=== PATIENT | male | born 1955 | race Caucasian/White ===

== ENCOUNTER 2018-01-21 18:10 | Inpatient (IN) | payer OTHER, SELFPAY ==
[~2018-01-21 18:10] MED LIST: Iopamidol 370 76% 100 ML VIAL ONE
[2018-01-21 18:40] LABS: #Basophils 0.2 thou/uL (0.0-0.2); #Eosinphils 0.7 thou/uL (0.0-0.7); #Lymphocytes 3.8 thou/uL (1.20-3.40); #Monocytes 1.2 thou/uL (0.11-0.59); #Neutrophils 5.4 thou/uL (1.40-6.50); %Basophils 1.6 % (0.0-1.0); %Eosinophils 6.2 % (0.0-10.0); %Monocytes 10.4 % (0.0-10.0); %Neutrophils 47.9 % (42.0-75.0); Hemoglobin 15.3 g/dL (14.0-18.0); Mean Corpuscular HGB CONC 32.9 g/dL (32.0-36.0); Mean Corpuscular Hemoglobin 31.7 pg (27.0-31.0); Mean Corpuscular Volume 96.3 fL (78.0-98.0); Platelet Count 244 thou/uL (130-400); RBC Distribution Width 13.3 % (11.5-14.5); Red Blood Cell (RBC) Count 4.82 mill/uL (4.70-6.10); White Blood Cell (WBC) Count 11.2 thou/uL (4.8-10.8)
[2018-01-21 18:53] LABS: ALT (SGPT) 11 U/L (8-55); AST (SGOT) 13 U/L (5-34); Albumin 3.9 g/dL (3.4-4.8); Alcohol Less than 10 mg/dL (Less than 10); Alkaline Phosphatase 81 U/L (40-150); Anion Gap 12 mmol/L (10-20); BUN (Urea Nitrogen) 16 mg/dL (8.4-25.7); Bilirubin, Total 0.4 mg/dL (0.2-1.2); Calc. Creatinine Clearance 0 mL/min (70-130); Calcium 9.7 mg/dL (7.8-10.44); Carbon Dioxide 21 mmol/L (23-31); Chloride 111 mmol/L (98-107); Estimated GFR-MDRD 57; Globulin 3.7 g/dL (2.4-3.5); Glucose 111 mg/dL (80-115); Potassium 3.9 mmol/L (3.5-5.1); Protein, Total 7.6 g/dL (5.8-8.1); Sodium 140 mmol/L (136-145)
[2018-01-21] MEDS ORDERED: Adacel (T-DAP) 0.5 ML SYRINGE ONE (19:12)
[2018-01-21] MEDS ORDERED: Lidocaine 1% w/Epinephrine 1:100K 20 ML VIAL ONE (19:16)
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
[2018-01-21] MEDS ORDERED: Dextrose 50% Abboject 50 ML SYRINGE SLOW IVP PRN (22:25)
[2018-01-21] MEDS ORDERED: Dextrose 5% in Water 1,000 ML IV PRN (22:25)
[2018-01-21] MEDS ORDERED: Ondansetron PF 4 MG/2 ML Vial IVP PRN (22:25)
[2018-01-21] MEDS ORDERED: Ondansetron ODT 4 MG TAB PO PRN (22:25)
[2018-01-21] MEDS ORDERED: Ibuprofen 600 MG TAB PO PRN (22:31)
[2018-01-21] MEDS ORDERED: Acetaminophen 500 MG TAB PO PRN (22:31)
[2018-01-21 23:02] LABS: Medtox Control Line Valid? VALID (VALID); Medtox Reader # READER 1
[2018-01-21 23:03] LABS: Amphetamine Not Detected (NotDetected); Barbiturates Screen Not Detected (NotDetected); Benzodiazepine Screen Not Detected (NotDetected); Cocaine Metabolite Screen Not Detected (NotDetected); Methadone Not Detected (NotDetected); Methamphetamine Not Detected (NotDetected); Opiate Screen Not Detected (NotDetected); Oxycodone Screen Not Detected (NotDetected); Phencyclidine (PCP) Not Detected (NotDetected); THC/Cannabinoid Screen Not Detected (NotDetected); Tricyclic Screen Not Detected (NotDetected)
[2018-01-21 23:40] LABS: Bilirubin Negative (Negative); Blood, Urine Large (Negative); Clarity CLOUDY (Clear); Glucose, Urine (Dipstick) Negative (Negative); Leukocyte Small (Negative); Nitrite Negative (Negative); Protein, Urine (Dipstick) Trace mg/dL (Neg-Trace); Specific Gravity, Urine 1.011 (1.002-1.036); Urobilinogen 0.2 mg/dL (0.2-1.0); pH, Urine 6.5 (5.0-9.0)
[2018-01-21 23:43] LABS: Bacteria/HPF None Seen HPF (None Seen); Hyaline Casts/LPF 0-3 HYALINE CAST LPF (0-3 Hyaline); Pathc Cast-AUWi Flag 0.29 (0-2.49); RBC/HPF GREATER THAN 50-TNTC HPF (0-3); Squamous Epithelial 0-3 HPF (0-3)
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
[2018-01-22 01:46] VITALS: BMI 30.7
[2018-01-22 02:27] LABS: #Basophils 0.1 thou/uL (0.0-0.2); #Eosinphils 0.1 thou/uL (0.0-0.7); #Lymphocytes 2.2 thou/uL (1.20-3.40); #Monocytes 1.5 thou/uL (0.11-0.59); #Neutrophils 10.8 thou/uL (1.40-6.50); %Basophils 0.6 % (0.0-1.0); %Eosinophils 0.7 % (0.0-10.0); %Lymphocytes 15.1 % (21.0-51.0); %Monocytes 10.4 % (0.0-10.0); %Neutrophils 73.1 % (42.0-75.0); Hemoglobin 14.3 g/dL (14.0-18.0); Mean Corpuscular HGB CONC 33.6 g/dL (32.0-36.0); Mean Corpuscular Hemoglobin 31.9 pg (27.0-31.0); Mean Corpuscular Volume 94.7 fL (78.0-98.0); Mean Platelet Volume 7.7 fL (7.4-10.4); Platelet Count 219 thou/uL (130-400); RBC Distribution Width 13.1 % (11.5-14.5); Red Blood Cell (RBC) Count 4.47 mill/uL (4.70-6.10); White Blood Cell (WBC) Count 14.8 thou/uL (4.8-10.8)
[2018-01-22 02:43] LABS: Anion Gap 11 mmol/L (10-20); BUN (Urea Nitrogen) 13 mg/dL (8.4-25.7); Calc. Creatinine Clearance 93 mL/min (70-130); Calcium 9.1 mg/dL (7.8-10.44); Carbon Dioxide 21 mmol/L (23-31); Chloride 111 mmol/L (98-107); Estimated GFR-MDRD 74; Glucose 107 mg/dL (80-115); Magnesium 1.6 mg/dL (1.6-2.6); Phosphorus 2.1 mg/dL (2.3-4.7); Potassium 3.8 mmol/L (3.5-5.1); Sodium 139 mmol/L (136-145)
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
[2018-01-22] MEDS: Polyethylene Glycol 3350 17 GM Packet PO SCH (09:04)
[2018-01-22] MEDS: Senokot S 8.6-50 MG TAB PO SCH ×2 (09:04→21:15)
[2018-01-22] MEDS: Famotidine 20 MG TAB PO SCH ×2 (09:05→21:15)
[2018-01-22] MEDS ORDERED: Heparin 10,000 UNITS/ 10 ML VIAL SLOW IVP SCH (09:45)
[2018-01-22] MEDS ORDERED: Heparin 25,000 units/D5W 500 ML IVPB SCH (09:45)
[2018-01-22] MEDS ORDERED: hydrALAZINE 20 MG/ML VIAL SLOW IVP PRN (10:11)
[2018-01-22] MEDS ORDERED: cloNIDine 0.1 MG TAB PO PRN (10:11)
[2018-01-22] MEDS ORDERED: Diabetic Tussin 200 MG/10 ML UDCUP PO PRN (10:11)
[2018-01-22] MEDS ORDERED: Benzonatate 100 MG CAP PO PRN (10:11)
[2018-01-22 10:34] LABS: Hemoglobin 14.5 g/dL (14.0-18.0); Platelet Count 236 thou/uL (130-400)
[2018-01-22] MEDS ORDERED: Magnesium 2 GM/50 ML 2 GM in Premix Bag 1 BAG IVPB SCH (12:45)
[2018-01-22] MEDS ORDERED: Potassium Phosphate 15 MMOL in Sodium Chloride 0.9% 250 ML 250 ML IVPB SCH (13:00)
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
[2018-01-22 17:41] LABS: PTT 227.9 SEC (22.9-36.1)
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
[2018-01-22] MEDS ORDERED: Lisinopril 5 MG TAB PO SCH (21:00)
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
[2018-01-23 06:06] LABS: Anion Gap 11 mmol/L (10-20); BUN (Urea Nitrogen) 13 mg/dL (8.4-25.7); Calc. Creatinine Clearance 97 mL/min (70-130); Calcium 9.2 mg/dL (7.8-10.44); Carbon Dioxide 21 mmol/L (23-31); Chloride 108 mmol/L (98-107); Estimated GFR-MDRD 77; Glucose 88 mg/dL (80-115); Potassium 3.8 mmol/L (3.5-5.1); Sodium 136 mmol/L (136-145)
[2018-01-23 07:01] LABS: PTT 124.3 SEC (22.9-36.1)
[2018-01-23] MEDS: Lisinopril 5 MG TAB PO SCH ×2 (08:20→22:16)
[2018-01-23] MEDS: Famotidine 20 MG TAB PO SCH ×2 (08:20→22:17)
[2018-01-23] MEDS: Polyethylene Glycol 3350 17 GM Packet PO SCH (08:21)
[2018-01-23] MEDS: Senokot S 8.6-50 MG TAB PO SCH ×2 (08:21→22:20)
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
--- NOTE | 2018-01-23 12:24 | EKG ---
Test Reason : Blood Pressure : / mmHG Vent. Rate : 116 BPM Atrial Rate : 116 BPM P-R Int : 126 ms QRS Dur : 096 ms QT Int : 362 ms P-R-T Axes : 044 -48 016 degrees QTc Int : 503 ms Sinus tachycardia with Premature atrial complexes Left anterior fascicular block Inferior infarct , age undetermined Abnormal ECG Confirmed by KETAN CHRISTIAN DO ([id number]), food expeditor GIOVANY ANDREW ([id number]) on 01/23/2018 12:24:00 PM Referred By: Confirmed By:KETAN CHRISTIAN DO
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
[2018-01-24 06:52] LABS: Anion Gap 10 mmol/L (10-20); BUN (Urea Nitrogen) 15 mg/dL (8.4-25.7); Calc. Creatinine Clearance 88 mL/min (70-130); Calcium 9.4 mg/dL (7.8-10.44); Carbon Dioxide 23 mmol/L (23-31); Chloride 108 mmol/L (98-107); Estimated GFR-MDRD 69; Glucose 84 mg/dL (80-115); Sodium 137 mmol/L (136-145)
[2018-01-24] MEDS: Lisinopril 5 MG TAB PO SCH ×2 (09:09→20:26)
[2018-01-24] MEDS: Senokot S 8.6-50 MG TAB PO SCH ×2 (09:09→20:29)
[2018-01-24] MEDS: Famotidine 20 MG TAB PO SCH ×2 (09:09→20:25)
[2018-01-24] MEDS: Polyethylene Glycol 3350 17 GM Packet PO SCH (09:09)
[2018-01-24 10:38] LABS: Hemoglobin 15.1 g/dL (14.0-18.0); Platelet Count 232 thou/uL (130-400)
[2018-01-24 10:46] LABS: INR-International Normal Ratio 1.1; PTT 27.2 SEC (22.9-36.1); Prothrombin Time 13.8 SEC (12.0-14.7)
--- NOTE | 2018-01-24 11:08 | PDOC.PN ---
- Subjective Encounter Start Date: 01/24/18 Encounter Start Time: 11:06 Subjective: feels well. eating and walking in hallways -: no CP/SOB - Objective Resuscitation Status - Order Detail: 01/21/18 22:25 Resuscitation Status Routine Co-Sign Provider: Resuscitation Status: FULL: Full Resuscitation Discussed with: pt gcs 14, no family at bedside MAR Reviewed: Yes Vital Signs & Weight: Vital Signs (12 hours) Temp Pulse Resp BP Pulse Ox 01/24/18 07:27 97.7 F 75 20 138/89 96 01/24/18 04:00 98.3 F 77 16 145/77 H 98 01/24/18 00:00 98.7 F 75 16 115/71 96 Weight Admit Weight 196 lb 8 oz Weight 196 lb 8 oz I&O: 01/23/18 01/24/18 01/25/18 06:59 06:59 06:59 Intake Total 720 480 Output Total 1075 900 Balance -355 -420 Result Diagrams: 01/24/18 10:21 01/24/18 05:07 Phys Exam - Physical Examination Constitutional: NAD HEENT: PERRLA, moist MMs, sclera anicteric, oral pharynx no lesions R facial brusing and swelling Neck: no nodes, no JVD, supple, full ROM Respiratory: no wheezing, no rales, no rhonchi, clear to auscultation bilateral Cardiovascular: RRR, no significant murmur Gastrointestinal: soft, non-tender, no distention, positive bowel sounds Musculoskeletal: no edema, pulses present left leg induration & erythema is better Neurological: non-focal, normal sensation, moves all 4 limbs Psychiatric: normal affect, A&O x 3 Skin: no rash Dx/Plan (1) Leg DVT (deep venous thromboembolism), acute Code(s): I82.409 - ACUTE EMBOLISM AND THOMBOS UNSP DEEP VN UNSP LOWER EXTREMITY Status: Acute Qualifiers: Laterality: left Qualified Code(s): I82.402 - Acute embolism and thrombosis of unspecified deep veins of left lower extremity (2) Hematuria Code(s): R31.9 - HEMATURIA, UNSPECIFIED Status: Acute (3) Prolonged QT interval Code(s): R94.31 - ABNORMAL ELECTROCARDIOGRAM [ECG] [EKG] Status: Acute (4) Sinus tachycardia Code(s): R00.0 - TACHYCARDIA, UNSPECIFIED Status: Resolved (5) HLD (hyperlipidemia) Code(s): E78.5 - HYPERLIPIDEMIA, UNSPECIFIED Status: Chronic (6) HTN (hypertension) Code(s): I10 - ESSENTIAL (PRIMARY) HYPERTENSION Status: Chronic (7) Nephrolithiasis Status: Chronic - Plan PT/OT, DVT proph w/SCDs recommened continuation & 3 month Rx with Oral anticoagulation pref Eliquis -: Will defer to primary team & urology.heparin drip stopped -: Pt was on ASA at home.high risk for PE given current DVT & immobilzation -: BP controlled.cont lisinopril -: O/PT.AM labs.H/H stable.IM team will follow * . Review of Systems - Review of Systems Constitutional: weakness. negative: fever, chills, sweats, malaise, other ENT: negative: Ear Pain, Ear Discharge, Nose Pain, Nose Discharge, Nose Congestion, Mouth Pain, Mouth Swelling, Throat Pain, Throat Swelling, Other Respiratory: negative: Cough, Dry, Shortness of Breath, Hemoptysis, SOB with Excertion, Pleuritic Pain, Sputum, Wheezing Cardiovascular: negative: chest pain, palpitations, orthopnea, paroxysmal nocturnal dyspnea, edema, light headedness, other Gastrointestinal: negative: Nausea, Vomiting, Abdominal Pain, Diarrhea, Constipation, Melena, Hematochezia, Other Genitourinary: negative: Dysuria, Frequency, Incontinence, Hematuria, Retention , Other Musculoskeletal: Other (knee pain in bruised knee). negative: Neck Pain, Shoulder Pain, Arm Pain, Back Pain, Hand Pain, Leg Pain, Foot Pain Neurological: negative: Weakness, Numbness, Incoordination, Change in Speech, Confusion, Seizures, Other - Medications/Allergies Allergies/Adverse Reactions: Allergies Allergy/AdvReac Type Severity Reaction Status Date / Time dextromethorphan HBr Allergy Verified 02/20/13 18:52 [From NyQuil] doxylamine [From NyQuil] Allergy Verified 02/20/13 18:52 pseudoephedrine HCl Allergy Verified 02/20/13 18:52 [From NyQuil] Sulfa (Sulfonamide Allergy Verified 02/20/13 17:32 Antibiotics) Medications: Current Medications Acetaminophen (Tylenol) 1,000 mg PO Q6H PRN PRN Reason: PAIN - 1st line Aspirin (Aspirin Chewable) 81 mg PO BID [facility] Last Admin: 01/24/18 09:09 Dose: 81 mg Benzonatate (Tessalon) 100 mg PO Q6H PRN PRN Reason: Cough Clonidine (Catapres) 0.1 mg PO Q4H PRN PRN Reason: SBP > _160___ Dextrose/Water (Dextrose 50%) 25 gm SLOW IVP PRN PRN PRN Reason: Hypoglycemia Famotidine (Pepcid) 20 mg PO BID [facility] Last Admin: 01/24/18 09:09 Dose: 20 mg Glucagon (Glucagon) 1 mg IM PRN PRN PRN Reason: Hypoglycemia Guaifenesin (Robitussin Sf) 200 mg PO Q4H PRN PRN Reason: Cough Hydralazine HCl (Apresoline) 10 mg SLOW IVP Q4H PRN PRN Reason: SBP > 180 and HR < 70 Dextrose/Water (D5w) 1,000 mls @ 0 mls/hr IV .Q0M PRN PRN Reason: Hypoglycemia Ibuprofen (Motrin) 600 mg PO Q8H PRN PRN Reason: pain 2nd line Lisinopril (Zestril) 2.5 mg PO BID [facility] Last Admin: 01/24/18 09:09 Dose: 2.5 mg Ondansetron HCl (Zofran Odt) 4 mg PO Q6H PRN PRN Reason: Nausea/Vomiting Ondansetron HCl (Zofran) 4 mg IVP Q6H PRN PRN Reason: Nausea Polyethylene Glycol (Miralax) 17 gm PO DAILY [facility] Last Admin: 01/24/18 09:09 Dose: Not Given Senna/Docusate Sodium (Senokot S) 2 tab PO BID [facility] Last Admin: 01/24/18 09:09 Dose: Not Given Sodium Chloride (Flush - Normal Saline) 10 ml IVF PRN PRN PRN Reason: Saline Flush
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
[2018-01-24] MEDS: Apixaban 5 MG TAB PO SCH (20:25)
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
[2018-01-25] MEDS: Polyethylene Glycol 3350 17 GM Packet PO SCH (09:10)
[2018-01-25] MEDS: Lisinopril 5 MG TAB PO SCH (09:11)
[2018-01-25] MEDS: Famotidine 20 MG TAB PO SCH (09:12)
[2018-01-25] MEDS: Apixaban 5 MG TAB PO SCH (09:12)
[2018-01-25] MEDS: Senokot S 8.6-50 MG TAB PO SCH (09:12)
[2018-01-25 11:47] VITALS: BP 123/73; TEMP 97.4
[2018-01-25] MEDS ORDERED: Apixaban 5 MG TAB PO SCH ×2 (13:15→21:00)
--- NOTE | 2018-01-25 15:24 | NM ---
NUCLEAR MEDICINE TECHNETIUM 99M STANDARD: HISTORY: Evaluate for renal function. COMPARISON: None. TECHNIQUE: Examination of the kidneys was performed after the intravenous administration of Technetium 99m MAG3 intravenously. The split function is 70.3% on the left kidney and 29.7% on the right kidney. No Lasix was administe red intravenously. On the postvoid images, there is dilatation of the right renal collecting system. IMPRESSION: Split function 70.3% on the left and 29.7% right. POS: ERVIN
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
== END 2018-01-25 13:45 | disposition home or self-care (01) | DRG 89 ==
LOC: ERS 18:10 → 2SE 22:25 → SURG A 01-23 11:55
PROVIDERS: ADMIT Surgery; ATTEND Surgery
PROC: 0HQ1XZZ Repair Face Skin, External Approach (ICD-10-PCS; principal; 2018-01-21)
DX: S06.0X9A Concussion with loss of consciousness of unspecified duration, initial encounter (principal); I82.432 Acute embolism and thrombosis of left popliteal vein; I31.3 Pericardial effusion (noninflammatory); T83.85XA Stenosis due to genitourinary prosthetic devices, implants and grafts, initial encounter; V03.90XA Pedestrian on foot injured in collision with car, pick-up truck or van, unspecified whether traffic or nontraffic accident, initial encounter; Y92.410 Unspecified street and highway as the place of occurrence of the external cause; I10 Essential (primary) hypertension; R73.03 Prediabetes; R00.0 Tachycardia, unspecified; I45.81 Long QT syndrome; S01.411A Laceration without foreign body of right cheek and temporomandibular area, initial encounter; R31.9 Hematuria, unspecified; E78.5 Hyperlipidemia, unspecified; N20.0 Calculus of kidney; I44.4 Left anterior fascicular block; N21.0 Calculus in bladder; Z88.2 Allergy status to sulfonamides; Z88.8 Allergy status to other drugs, medicaments and biological substances
CPT/HCPCS: 12013; 36415; 70450; 70486; 71045; 71260; 72125; 74177; 78707; 80048; 80053; 80306; 80307; 81003; 81015; 83735; 84100; 84484; 85014; 85018; 85025; 85049; 85610; 85730; 87086; 90471; 90715; 93005; 93306; 96360; A9562; G0390; G8978-GP-CJ; G8979-GP-CJ; G8980-GP-CJ; G8987-GO-CH; G8988-GO-CH; G8989-GO-CH; J1644; J2001; J7050

== ENCOUNTER 2018-11-18 17:06 | Emergency (ER) | payer SELFPAY ==
--- NOTE | 2018-11-18 18:16 | ULT ---
ULTRASOUND DOPPLER DUPLEX VENOUS LEFT LOWER EXTREMITY: DATE: 11/18/2018 HISTORY: 63-year-old male with left lower extremity edema TECHNIQUE: Grayscale, color-flow, and spectral analysis, of the left common femoral, profunda femoral, greater s aphenous, femoral, popliteal, and posterior tibial, veins. FINDINGS: There is edema in the soft tissues of the calf. Because of the edema, the posterior tibial vein is no t visualized. There is no DVT in the popliteal, femoral, common femoral, profunda femoral, or proximal greater saph enous, veins. Enlarged lymph node in left groin is noted. IMPRESSION: 1. Soft tissue edema in the left leg. 2. Posterior tibial vein not visualized. 3. No evidence of deep venous thrombosis in the left thigh from groin to knee.
== END 2018-11-18 19:20 | disposition home or self-care (01) ==
LOC: ERS 17:06
DX: I89.0 Lymphedema, not elsewhere classified (principal); E78.5 Hyperlipidemia, unspecified; I10 Essential (primary) hypertension; Z87.891 Personal history of nicotine dependence; Z79.82 Long term (current) use of aspirin; Z79.899 Other long term (current) drug therapy

== ENCOUNTER 2019-03-16 11:05 | Emergency (ER) | payer SELFPAY ==
--- NOTE | 2019-03-16 12:34 | RAD ---
EXAM: Chest 2 views: HISTORY: Cough for 2 weeks COMPARISON: None. FINDINGS: There is a normal-sized cardiomediastinal silhouette. There is no evidence of consolidation, mass, or pleural effusion. Degenerative changes are seen in the spine. IMPRESSION: No evidence of acute cardiopulmonary disease
[2019-03-16] MEDS ORDERED: Dexamethasone 10 MG/ML VIAL ONE (12:53)
[2019-03-16] MEDS ORDERED: Benzonatate 100 MG CAP ONE (12:53)
== END 2019-03-16 12:56 | disposition home or self-care (01) ==
LOC: ERS 11:05
DX: J06.9 Acute upper respiratory infection, unspecified (principal); E78.5 Hyperlipidemia, unspecified; I10 Essential (primary) hypertension; Z87.891 Personal history of nicotine dependence; Z79.899 Other long term (current) drug therapy; Z79.82 Long term (current) use of aspirin
CPT/HCPCS: 71046; J1100

== ENCOUNTER 2019-12-12 11:03 | Emergency (ER) | payer OTHER, SELFPAY ==
[2019-12-12 11:46] LABS: #Basophils 0.1 thou/uL (0.0-0.2); #Eosinphils 0.3 thou/uL (0.0-0.7); #Lymphocytes 1.9 thou/uL (1.20-3.40); #Monocytes 0.9 thou/uL (0.11-0.59); #Neutrophils 6.6 thou/uL (1.40-6.50); %Basophils 0.6 % (0.0-1.0); %Eosinophils 3.1 % (0.0-10.0); %Lymphocytes 19.8 % (21.0-51.0); %Monocytes 8.8 % (0.0-10.0); %Neutrophils 67.8 % (42.0-75.0); Hemoglobin 15.7 g/dL (14.0-18.0); Mean Corpuscular HGB CONC 32.6 g/dL (32.0-36.0); Mean Corpuscular Hemoglobin 32.2 pg (27.0-31.0); Mean Corpuscular Volume 99.1 fL (78.0-98.0); Mean Platelet Volume 8.8 fL (7.4-10.4); Platelet Count 192 thou/uL (130-400); RBC Distribution Width 12.5 % (11.5-14.5); Red Blood Cell (RBC) Count 4.85 mill/uL (4.70-6.10); White Blood Cell (WBC) Count 9.7 thou/uL (4.8-10.8)
[2019-12-12 12:56] LABS: Albumin 3.8 g/dL (3.4-4.8)
[2019-12-12 12:57] LABS: Chloride 110 mmol/L (98-107); Potassium 4.3 mmol/L (3.5-5.1); Sodium 140 mmol/L (136-145)
[2019-12-12 12:58] LABS: Glucose 87 mg/dL (80-115); Protein, Total 6.8 g/dL (5.8-8.1)
[2019-12-12 13:00] LABS: Anion Gap 13 mmol/L (10-20); Bilirubin, Total 0.6 mg/dL (0.2-1.2); Carbon Dioxide 21 mmol/L (23-31)
[2019-12-12 13:01] LABS: Alkaline Phosphatase 70 U/L (40-110)
[2019-12-12 13:02] LABS: Bilirubin Negative (Negative); Blood, Urine 2+ (Negative); Clarity Clear (Clear); Glucose, Urine (Dipstick) Normal (Negative); Ketone, Urine Negative (Negative); Leukocyte 250 Leu/uL (Negative); Nitrite Negative (Negative); Protein, Urine (Dipstick) 10 mg/dL (Neg-Trace); RBC/HPF Greater than 50 HPF (0-3); Specific Gravity, Urine 1.017 (1.002-1.036); Squamous Epithelial 0-3 HPF (0-3); Urobilinogen Normal mg/dL (Less than 2)
[2019-12-12 13:02] LABS: BUN (Urea Nitrogen) 16 mg/dL (8.4-25.7); Calc. Creatinine Clearance 0 mL/min (70-130); Estimated GFR-MDRD 64
[2019-12-12 13:03] LABS: AST (SGOT) 16 U/L (5-34)
[2019-12-12 13:04] LABS: Bacteria/HPF 1+ HPF (None Seen)
[2019-12-12 13:04] LABS: ALT (SGPT) 11 U/L (8-55)
[2019-12-12] MEDS ORDERED: Ciprofloxacin 500 MG TAB ONE (13:50)
== END 2019-12-12 14:00 | disposition home or self-care (01) ==
LOC: ERS 11:03
DX: N30.00 Acute cystitis without hematuria (principal); E78.5 Hyperlipidemia, unspecified; I11.0 Hypertensive heart disease with heart failure; I50.9 Heart failure, unspecified; Z87.891 Personal history of nicotine dependence
CPT/HCPCS: 36415; 80053; 81003; 81015; 85025; 93005

== ENCOUNTER 2020-11-14 10:47 | Emergency (ER) | payer SELFPAY | END 2020-11-14 13:25 | disposition home or self-care (01) | LOC: ERS 10:47 | DX: I89.0 Lymphedema, not elsewhere classified (principal); E78.5 Hyperlipidemia, unspecified; I11.0 Hypertensive heart disease with heart failure; I50.9 Heart failure, unspecified; Z87.891 Personal history of nicotine dependence | CPT/HCPCS: 99284 ==

== ENCOUNTER 2023-01-28 11:55 | Inpatient (IN) | payer SELFPAY ==
[2023-01-28] MEDS ORDERED: dilTIAZem 125 MG/25 ML SDV ONE (12:26)
[2023-01-28] MEDS ORDERED: dilTIAZem 25 MG/5 ML VIAL ONE (12:28)
[2023-01-28] MEDS ORDERED: Amiodarone 150 MG/3 ML VIAL ONE ×2 (12:39→13:03)
[2023-01-28 12:43] LABS: #Basophils 0.1 thou/uL (0.0-0.2); #Eosinphils 0.5 thou/uL (0.0-0.7); #Monocytes 1.3 thou/uL (0.11-0.59); #Neutrophils 6.4 thou/uL (1.40-6.50); %Basophils 0.5 % (0.0-1.0); %Eosinophils 4.9 % (0.0-10.0); %Monocytes 11.6 % (0.0-10.0); %Neutrophils 57.6 % (42.0-75.0); Hematocrit 45.9 % (42.0-52.0); Mean Corpuscular HGB CONC 32.7 g/dL (32.0-36.0); Mean Corpuscular Hemoglobin 30.6 pg (27.0-31.0); Mean Corpuscular Volume 93.7 fl (78.0-98.0); Mean Platelet Volume 10.8 fL (7.4-10.4); Platelet Count 229 10x3/uL (130-400); RBC Distribution Width 14.5 % (11.5-14.5); White Blood Cell (WBC) Count 11.1 10x3/uL (4.8-10.8)
[2023-01-28] MEDS ORDERED: Amiodarone 450 MG, Admixture Fee 1 EACH in Dextrose 5% in Water 250 ML IVPB SCH (13:00)
[2023-01-28 13:05] LABS: ALT (SGPT) 9 U/L (8-55); AST (SGOT) 12 U/L (5-34); Albumin 3.7 g/dL (3.4-4.8); Alkaline Phosphatase 64 U/L (40-110); Anion Gap 12 mmol/L (10-20); BUN (Urea Nitrogen) 12 mg/dL (8.4-25.7); Bilirubin, Total 0.6 mg/dL (0.2-1.2); Calc. Creatinine Clearance 0 mL/min (70-130); Calcium 9.1 mg/dL (7.8-10.44); Carbon Dioxide 22 mmol/L (23-31); Chloride 109 mmol/L (98-107); Estimated GFR 53; Globulin 3.2 g/dL (2.4-3.5); Glucose 94 mg/dL (80-115); Magnesium 1.7 mg/dL (1.6-2.6); Potassium 3.7 mmol/L (3.5-5.1); Protein, Total 6.9 g/dL (5.8-8.1); Sodium 139 mmol/L (136-145)
[2023-01-28 13:10] LABS: Troponin I 0.017 ng/mL (< 0.028)
[2023-01-28] MEDS ORDERED: Senokot S 8.6-50 MG TAB PO PRN (15:03)
[2023-01-28] MEDS ORDERED: Bisacodyl 10 MG SUPP PR PRN (15:03)
[2023-01-28] MEDS ORDERED: Bisacodyl 5 MG TAB PO PRN (15:03)
[2023-01-28] MEDS ORDERED: Furosemide 40 MG/4 ML VIAL SLOW IVP SCH (15:15)
[2023-01-28] MEDS ORDERED: Furosemide 40 MG/4 ML VIAL ONE (16:29)
[2023-01-28 18:02] LABS: Bilirubin Negative (Negative); Blood, Urine 3+ (Negative); CAUTI Indications for Culture Dysuria,urgency,freq; Clarity Clear (Clear); Glucose, Urine (Dipstick) Normal (Negative); Ketone, Urine Negative (Negative); Leukocyte 75 Leu/uL (Negative); Nitrite Negative (Negative); Protein, Urine (Dipstick) 10 mg/dL (Neg-Trace); RBC/HPF Greater than 50 HPF (0-3); Specific Gravity, Urine 1.007 (1.002-1.036); Squamous Epithelial 0-3 HPF (0-3); Urobilinogen Normal mg/dL (Less than 2); pH, Urine 5.5 (5.0-9.0)
[2023-01-28 18:11] LABS: Bacteria/HPF 1+ HPF (None Seen)
[2023-01-28 18:12] LABS: Urine Culture Reflex No No
[2023-01-28] MEDS: Amiodarone 450 MG in Dextrose 5% in Water 250 ML IVPB SCH (19:40)
[2023-01-28] MEDS: Acetaminophen 500 MG TAB PO SCH (21:23)
[2023-01-29 04:09] LABS: #Basophils 0.1 thou/uL (0.0-0.2); #Eosinphils 0.5 thou/uL (0.0-0.7); #Neutrophils 4.2 thou/uL (1.40-6.50); %Basophils 0.7 % (0.0-1.0); %Lymphocytes 32.3 % (21.0-51.0); %Monocytes 11.8 % (0.0-10.0); %Neutrophils 48.9 % (42.0-75.0); Hematocrit 39.8 % (42.0-52.0); Hemoglobin 13.1 g/dL (14.0-18.0); Mean Corpuscular HGB CONC 32.9 g/dL (32.0-36.0); Mean Corpuscular Hemoglobin 30.8 pg (27.0-31.0); Mean Corpuscular Volume 93.4 fl (78.0-98.0); Platelet Count 215 10x3/uL (130-400); RBC Distribution Width 14.6 % (11.5-14.5); Red Blood Cell (RBC) Count 4.26 mill/uL (4.70-6.10); White Blood Cell (WBC) Count 8.7 10x3/uL (4.8-10.8)
[2023-01-29 04:31] LABS: Anion Gap 12 mmol/L (10-20); BUN (Urea Nitrogen) 13 mg/dL (8.4-25.7); Calc. Creatinine Clearance 68 mL/min (70-130); Calcium 8.6 mg/dL (7.8-10.44); Carbon Dioxide 21 mmol/L (23-31); Chloride 111 mmol/L (98-107); Estimated GFR 56; Glucose 88 mg/dL (80-115); Potassium 3.4 mmol/L (3.5-5.1); Sodium 141 mmol/L (136-145)
[2023-01-29] MEDS ORDERED: Potassium Chloride 20 MEQ TAB PO SCH (07:45)
[2023-01-29] MEDS ORDERED: Electrolyte Replacement Protocol 1 EACH FS SCH (07:45)
[2023-01-29] MEDS ORDERED: Electrolyte Replacement Protocol FS PRN (07:45)
[2023-01-29 08:05] LABS: Magnesium 1.6 mg/dL (1.6-2.6)
[2023-01-29] MEDS: Acetaminophen 500 MG TAB PO SCH ×3 (08:51→21:59)
[2023-01-29] MEDS: Furosemide 40 MG/4 ML VIAL SLOW IVP SCH (08:52)
[2023-01-29] MEDS ORDERED: FLU VACC QS2023(65UP)/MF59C/PF 60 MCG/0.5 ML SYRINGE IM ONE (09:00)
[2023-01-29] MEDS ORDERED: Magnesium 2 GM/50 ML(in water) 2 GM in Premix 1 BAG IVPB SCH (09:00)
[2023-01-29 09:11] VITALS: BMI 31.3
[2023-01-29 13:10] LABS: Potassium 3.7 mmol/L (3.5-5.1)
[2023-01-29] MEDS: Amiodarone 450 MG in Dextrose 5% in Water 250 ML IVPB SCH (14:39)
[2023-01-29] MEDS: Carvedilol 3.125 MG TAB PO SCH (17:53)
[2023-01-29] MEDS: Sacubitril 24MG/Valsartan 26 MG TAB PO SCH (21:59)
[2023-01-29] MEDS: Amiodarone 200 MG TAB PO SCH (22:01)
[2023-01-30 04:57] LABS: #Basophils 0.1 thou/uL (0.0-0.2); #Eosinphils 0.7 thou/uL (0.0-0.7); #Monocytes 1.3 thou/uL (0.11-0.59); #Neutrophils 6.3 thou/uL (1.40-6.50); %Basophils 0.5 % (0.0-1.0); %Eosinophils 5.8 % (0.0-10.0); %Monocytes 11.8 % (0.0-10.0); %Neutrophils 56.5 % (42.0-75.0); Hematocrit 42.9 % (42.0-52.0); Mean Corpuscular HGB CONC 32.6 g/dL (32.0-36.0); Mean Corpuscular Hemoglobin 30.7 pg (27.0-31.0); Mean Corpuscular Volume 94.1 fl (78.0-98.0); Mean Platelet Volume 10.9 fL (7.4-10.4); Platelet Count 210 10x3/uL (130-400); RBC Distribution Width 14.7 % (11.5-14.5); Red Blood Cell (RBC) Count 4.56 mill/uL (4.70-6.10); White Blood Cell (WBC) Count 11.2 10x3/uL (4.8-10.8)
[2023-01-30 05:31] LABS: Anion Gap 14 mmol/L (10-20); BUN (Urea Nitrogen) 14 mg/dL (8.4-25.7); Calc. Creatinine Clearance 65 mL/min (70-130); Calcium 8.6 mg/dL (7.8-10.44); Carbon Dioxide 22 mmol/L (23-31); Chloride 109 mmol/L (98-107); Estimated GFR 53; Glucose 81 mg/dL (80-115); Magnesium 1.9 mg/dL (1.6-2.6); Potassium 3.7 mmol/L (3.5-5.1); Sodium 141 mmol/L (136-145)
[2023-01-30] MEDS ORDERED: Magnesium 2 GM/50 ML(in water) 2 GM in Premix 1 BAG IVPB SCH (08:00)
[2023-01-30] MEDS ORDERED: Empagliflozin 10 MG TAB PO SCH (09:00)
[2023-01-30] MEDS: Carvedilol 3.125 MG TAB PO SCH (09:32)
[2023-01-30] MEDS: Amiodarone 200 MG TAB PO SCH (09:33)
[2023-01-30] MEDS: Acetaminophen 500 MG TAB PO SCH (09:33)
[2023-01-30] MEDS: Sacubitril 24MG/Valsartan 26 MG TAB PO SCH (09:33)
[2023-01-30] MEDS: Furosemide 40 MG/4 ML VIAL SLOW IVP SCH (09:34)
[2023-01-30 16:03] VITALS: BP 110/70; TEMP 98.1
[2023-02-08] MEDS ORDERED: Amiodarone 200 MG TAB PO SCH (09:00)
== END 2023-01-30 17:50 | disposition home health service (06) | DRG 291 ==
LOC: ERS 11:55 → ERHOLD 14:57 → 2NO 18:49 → OBSVTOIN 01-29 11:06
PROVIDERS: ADMIT Hospitalist; ATTEND Family Medicine
DX: I13.0 Hypertensive heart and chronic kidney disease with heart failure and stage 1 through stage 4 chronic kidney disease, or unspecified chronic kidney disease (principal); I50.23 Acute on chronic systolic (congestive) heart failure; I47.29 Other ventricular tachycardia; I49.3 Ventricular premature depolarization; F17.210 Nicotine dependence, cigarettes, uncomplicated; N18.9 Chronic kidney disease, unspecified; E87.6 Hypokalemia; Z66 Do not resuscitate; I42.0 Dilated cardiomyopathy; L98.499 Non-pressure chronic ulcer of skin of other sites with unspecified severity; Z88.2 Allergy status to sulfonamides; Z79.899 Other long term (current) drug therapy; Z98.890 Other specified postprocedural states; Z88.8 Allergy status to other drugs, medicaments and biological substances
CPT/HCPCS: 36415; 71045; 80048; 80053; 81001; 83605; 83735; 83880; 84484; 85025; 93005; 93306; 96365; 96366; 96372; 96375; 96376; 97139; G0378; J0282; J1650; J1940; J3475; J7070